=== PATIENT | male | born 1955 | race Two or more races ===

== ENCOUNTER 2018-06-23 15:39 | Emergency (ER) | payer MEDICAID ==
[~2018-06-23] VITALS: Ht 172.7 cm; Wt 86.2 kg
[2018-06-23 15:40] VITALS: BP 138/65
--- NOTE | 2018-06-23 15:40 | NUR ---
ED Nurse Note: PT brought by [facility] due to non-radiated cp that started about couple hrs ago. per pt, it feels like sharp and pressure. EMS gave him 2 NTG and 162 ASA, pain decreased to 5/10 from 9/10. skin warm to touch. no n/v. AAO x4. respirations even and non-labored noted. on nurse monitoring. ekg done. wound dressing noted on bilateral legs. per pt, has DM ulcers. will wait for the further order.
[2018-06-23 16:31] LABS: BASOPHILS % (AUTO) 1.9 % (0.0-2.0); EOSINOPHILS % (AUTO) 2.8 % (0.0-3.0); HEMATOCRIT 43.8 % (42.0-52.0); HEMOGLOBIN 15.8 G/DL (14.2-18.0); LYMPHOCYTES % (AUTO) 27.1 % (20.0-45.0); MEAN CORPUSCULAR VOLUME 84 FL (80-99); MONOCYTES % (AUTO) 9.7 % (1.0-10.0); NEUTROPHILS % (AUTO) 58.5 % (45.0-75.0); PLATELET COUNT 417 K/UL (150-450); RED BLOOD COUNT 5.25 M/UL (4.70-6.10); RED CELL DISTRIBUTION WIDTH 11.9 % (11.6-14.8); WHITE BLOOD COUNT 12.1 K/UL (4.8-10.8)
[2018-06-23 16:35] LABS: ANION GAP 14 mmol/L (5-15); BLOOD UREA NITROGEN 12 mg/dL (7-18); CALCIUM 8.7 MG/DL (8.5-10.1); CARBON DIOXIDE 25 MMOL/L (21-32); CHLORIDE 100 MMOL/L (98-107); CREATININE 0.9 MG/DL (0.55-1.30); SODIUM 139 MMOL/L (136-145)
[2018-06-23 16:47] LABS: ALANINE AMINOTRANSFERASE 56 U/L (12-78); ALBUMIN 3.8 G/DL (3.4-5.0); ALKALINE PHOSPHATASE 71 U/L (46-116); ASPARTATE AMINO TRANSFERASE 31 U/L (15-37); BILIRUBIN,TOTAL 0.4 MG/DL (0.2-1.0); CREATINE KINASE 275 U/L (26-308)
--- NOTE | 2018-06-23 16:50 | Diagnostic Imaging Report ---
Indication: Chest pain Technique: One view of the chest Comparison: none Findings: The heart size is upper limits of normal. The lungs and pleural spaces are clear. Impression: No acute process
[2018-06-23 17:00] VITALS: BP 146/67
[2018-06-23 17:54] LABS: APPEARANCE,URINE CLEAR; BILIRUBIN, URINE NEGATIVE (NEGATIVE); COLOR,URINE PALE YELLOW; GLUCOSE, URINE (UA) NEGATIVE (NEGATIVE); KETONES,URINE NEGATIVE (NEGATIVE); LEUKOCYTE ESTERASE ,URINE NEGATIVE (NEGATIVE); NITRITE,URINE NEGATIVE (NEGATIVE); PH,URINE 7 (4.5-8.0); PROTEIN,URINE 3+ (NEGATIVE); UROBILINOGEN,URINE NORMAL MG/DL (0.0-1.0)
[2018-06-23] MEDS ORDERED: GLUCOPHAGE1000 MG ORAL (18:08)
[2018-06-23] MEDS ORDERED: METOPROLOL SUC100 MG ORAL (18:08)
[2018-06-23] MEDS ORDERED: AFRIN NASAL SPR30 ML NASAL (18:08)
[2018-06-23] MEDS ORDERED: AMARYL4 MG ORAL (18:08)
[2018-06-23] MEDS ORDERED: AVAPRO300 MG ORAL (18:08)
[2018-06-23] MEDS ORDERED: DIPHENHYDRAMINE25 M1 ORAL (18:08)
[2018-06-23] MEDS ORDERED: HUMULIN N100 UNIT/1 SUBQ (18:08)
[2018-06-23] MEDS ORDERED: NORVASC10 MG ORAL (18:08)
[2018-06-23] MEDS ORDERED: GABAPENTIN300 MG ORAL (18:08)
--- NOTE | 2018-06-23 19:15 | NUR ---
HAND-OFF: Report given to DARIUS Villalta.
[2018-06-23 19:48] VITALS: BP 134/66
[2018-06-23 21:21] VITALS: BP 127/65
--- NOTE | 2018-06-23 22:44 | Emergency Room Report ---
History of Present Illness General Chief Complaint: Chest Pain Source: Patient, EMS Present Illness HPI States that about 2 hours after arrival he suddenly developed left-sided chest pain that is pressure-like in nature. He denies nausea or vomiting. He denies sweating. He denies left arm pain or tingling. He states that the symptoms resolved during transportation by EMS after being given a nitroglycerin. He currently has no chest pain. He denies recent illness. He denies cough or congestion. He denies fever chills. He has no other complaints. Allergies: Coded Allergies: No Known Allergies (Verified , 07/08/06) Patient History Past Medical History: see triage record, DM, HTN Past Surgical History: brent, other - splenectomy, colostomy with takedown (hx of perforated diverticulitis) Social History: Denies: smoking, alcohol use, drug use Reviewed Nursing Documentation: PMH: Agreed; PSxH: Agreed Nursing Documentation-PMH Past Medical History: No History, Except For Hx Hypertension: Yes Hx Diabetes: Yes Review of Systems All Other Systems: negative except mentioned in HPI Physical Exam Vital Signs Date Time Temp Pulse Resp B/P (MAP) Pulse Ox O2 Delivery O2 Flow Rate FiO2 06/23/18 15:33 97.5 80 16 154/83 98 Room Air Sp02 EP Interpretation: reviewed, normal General Appearance: no apparent distress, alert, GCS 15, non-toxic Head: normocephalic, atraumatic Eyes: bilateral eye normal inspection, bilateral eye PERRL ENT: hearing grossly normal, normal pharynx, no angioedema, normal voice Neck: full range of motion, supple/symm/no masses Respiratory: chest non-tender, lungs clear, normal breath sounds, no respiratory distress, no retraction, no accessory muscle use, speaking full sentences Cardiovascular #1: regular rate, rhythm, no edema Gastrointestinal: normal bowel sounds, non tender, soft, non-distended, no guarding, no rebound Rectal: deferred Musculoskeletal: back normal, gait/station normal, normal range of motion, non- tender Neurologic: alert, oriented x3, responsive, motor strength/tone normal, sensory intact, speech normal Psychiatric: judgement/insight normal, memory normal, mood/affect normal, no suicidal/homicidal ideation Skin: normal color, no rash, warm/dry, well hydrated Medical Decision Making Diagnostic Impression: Primary Impression: Chest pain ER Course Has high risk for acute coronary syndrome. The patient has a history of diabetes, hypertension, hyperlipidemia and had left-sided chest pain that was relieved with nitroglycerin in route to the emergency department. He will need to be admitted to rule out acute coronary syndrome. Initial workup to include EKG and troponin are unremarkable. The patient's insurance company requested his transfer to [facility]. The patient is stable for transfer. Laboratory Tests Test 06/23/18 15:55 White Blood Count 12.1 K/UL (4.8-10.8) H Red Blood Count 5.25 M/UL (4.70-6.10) Hemoglobin 15.8 G/DL (14.2-18.0) Hematocrit 43.8 % (42.0-52.0) Mean Corpuscular Volume 84 FL (80-99) Mean Corpuscular Hemoglobin 30.1 PG (27.0-31.0) Mean Corpuscular Hemoglobin Concent 36.0 G/DL (32.0-36.0) Red Cell Distribution Width 11.9 % (11.6-14.8) Platelet Count 417 K/UL (150-450) Mean Platelet Volume 7.5 FL (6.5-10.1) Neutrophils (%) (Auto) 58.5 % (45.0-75.0) Lymphocytes (%) (Auto) 27.1 % (20.0-45.0) Monocytes (%) (Auto) 9.7 % (1.0-10.0) Eosinophils (%) (Auto) 2.8 % (0.0-3.0) Basophils (%) (Auto) 1.9 % (0.0-2.0) Urine Color Pale yellow Urine Appearance Clear Urine pH 7 (4.5-8.0) Urine Specific [place] 1.010 (1.005-1.035) Urine Protein 3+ (NEGATIVE) H Urine Glucose (UA) Negative (NEGATIVE) Urine Ketones Negative (NEGATIVE) Urine Blood 1+ (NEGATIVE) H Urine Nitrite Negative (NEGATIVE) Urine Bilirubin Negative (NEGATIVE) Urine Urobilinogen Normal MG/DL (0.0-1.0) Urine Leukocyte Esterase Negative (NEGATIVE) Urine RBC 0-2 /HPF (0 - 0) H Urine WBC 0-2 /HPF (0 - 0) Urine Squamous Epithelial Cells None /LPF (NONE/OCC) Urine Bacteria Few /HPF (NONE) Sodium Level 139 MMOL/L (136-145) Potassium Level 3.0 MMOL/L (3.5-5.1) L Chloride Level 100 MMOL/L (98-107) Carbon Dioxide Level 25 MMOL/L (21-32) Anion Gap 14 mmol/L (5-15) Blood Urea Nitrogen 12 mg/dL (7-18) Creatinine 0.9 MG/DL (0.55-1.30) Estimate Glomerular Filtration Rate > 60 mL/min (>60) Glucose Level 190 MG/DL (74-106) H Calcium Level 8.7 MG/DL (8.5-10.1) Total Bilirubin 0.4 MG/DL (0.2-1.0) Aspartate Amino Transferase (AST) 31 U/L (15-37) Alanine Aminotransferase (ALT) 56 U/L (12-78) Alkaline Phosphatase 71 U/L (46-116) Total Creatine Kinase 275 U/L (26-308) Creatine Kinase MB 6.0 NG/ML (0.0-3.6) H Creatine Kinase MB Relative Index 2.1 Troponin I 0.045 ng/mL (0.000-0.056) Total Protein 7.6 G/DL (6.4-8.2) Albumin 3.8 G/DL (3.4-5.0) Globulin 3.8 g/dL Albumin/Globulin Ratio 1.0 (1.0-2.7) Urine Opiates Screen Negative (NEGATIVE) Urine Barbiturates Screen Negative (NEGATIVE) Phencyclidine (PCP) Screen Negative (NEGATIVE) Urine Amphetamines Screen Negative (NEGATIVE) Urine Benzodiazepines Screen Negative (NEGATIVE) Urine Cocaine Screen Negative (NEGATIVE) Urine Marijuana (THC) Screen Negative (NEGATIVE) EKG Diagnostic Results Rate: normal Rhythm: NSR ST Segments: other - Qwaves in V1, V2, V3 Rhythm Strip Diag. Results EP Interpretation: yes Rate: 70's Rhythm: NSR, no PVC's, no ectopy Chest X-Ray Diagnostic Results Chest X-Ray Diagnostic Results : Chest X-Ray Ordered: Yes # of Views/Limited/Complete: 1 View Indication: Chest Pain EP Interpretation: Yes Interpretation: no consolidation, no effusion, no pneumothorax, no acute cardiopulmonary disease Impression: No acute disease Electronically Signed by: Regine Valentine DO Last Vital Signs Date Time Temp Pulse Resp B/P (MAP) Pulse Ox O2 Delivery O2 Flow Rate FiO2 06/23/18 21:21 98.6 78 16 127/65 98 Room Air Status: improved Disposition: XFER SHT-TRM HOSP Condition: Stable Referrals: NAGA CORTES (PCP) Regine Valentine DO Jun 23, 2018 22:44
[2018-06-23 22:58] VITALS: BP 122/63
[2018-06-24 01:00] VITALS: BP 125/66
--- NOTE | 2018-06-24 02:39 | NUR ---
[facility] was called spoke with Matthias and transportation has been set up w/ a ETA of [phone]
[2018-06-24 03:00] VITALS: BP 122/67
--- NOTE | 2018-06-24 03:50 | NUR ---
ED Nurse Note: PT is transfered to Room 505 bed B to DARIUS Cordova at [facility]. pt has left with all belongings. pt vital signs, status and condition was reported to [facility] RN, ERMD, and EMS during transfer. pt stable for transfer. pt vital signs are stable and pt is alert and oriented times 4.
[2018-06-24 03:53] VITALS: BP 120/65
[2018-06-24 03:56] VITALS: BP 120/65
== END 2018-06-24 03:50 | disposition short-term general hospital (02) ==
LOC: EDBD 15:39 → EMR 17:10
DX: R07.89 Other chest pain (principal); E11.9 Type 2 diabetes mellitus without complications; I10 Essential (primary) hypertension
CPT/HCPCS: 36415; 71045; 80053; 80307; 81003; 82550; 82553; 84484; 85025; 93005; 96360; 99284; J8499